=== PATIENT | female | born 1980 | race Caucasian/White ===

== ENCOUNTER 2017-06-30 21:45 | Emergency (ER) | payer SELFPAY ==
[2017-06-30 21:56] VITALS: BP 151/94
[2017-06-30] MEDS ORDERED: IBUPROFEN 600 MG TABLET PO ONE (21:58)
[2017-06-30] MEDS ORDERED: BUPIVACAINE HCL 50 ML VIAL IJ ONE (22:02)
[2017-06-30] MEDS ORDERED: PENICILLIN V POTASSIUM 250 MG TABLET PO ONE (22:05)
--- NOTE | 2017-06-30 22:05 | ERNOTE ---
ENT HPI Date of Service: 06/30/17 Presenting Symptoms: dental pain Time Seen by Provider: 06/30/17 21:55 - Immun/Allergies/Home Medications Immunizations: IMMUNIZATION HX Immunizations Up to Date Yes History of Influenza Vaccine No Hx Pneumococcal Vaccination No Allergies/Adverse Reactions: Allergies Allergy/AdvReac Type Severity Reaction Status Date / Time No Known Allergies Allergy Verified 06/30/17 21:56 Home Medications: HOME MEDICATIONS HYDROcodone/ACETAMINOPHEN [[place] 5-325] 1 each PO Q4H PRN #10 tablet 06/30/17 [ Last Taken Unknown] Penicillin V Potassium [Pen-Vee K] 500 mg PO Q6H #40 tab 06/30/17 [Last Taken Unknown] - History of Present Illness Narrative: This is a 36-year-old female who comes to the emergency department with 3 days of left lower tooth pain. The patient says that she saw a dentist 6 months ago and was told that she had lost part of her tooth. She was told she would likely need to have it extracted. She has not done so. 3 days ago it started bothering her more. She does not have any pain radiating to the ear. She does not have any difficulty swallowing. No fever. No other complaints Review of Systems - Review of Systems Constitutional: Present: no symptoms reported EYE: Present: no symptoms reported ENT: Present: other Respiratory: Present: no symptoms reported Cardiology: Present: no symptoms reported - dental pain Gastrointestinal/Abdominal: Present: no symptoms reported Genitourinary: Present: no symptoms reported Musculoskeletal: Present: no symptoms reported Skin: Present: no symptoms reported Neurological: Present: no symptoms reported Endocrine: Present: no symptoms reported Hematologic/Lymphatic: Present: no symptoms reported Psych: Present: no symptoms reported - Patient's Past Medical History Patient History - Medical: No pertinent hx Patient History - Cardiac/Respiratory: No pertinent hx Patient History - Cancer: No Hx of Cancer Patient History - Surgical Procedures: No surgical history Patient History - Other: None LMP (females 10-50): unknown - Social History Living Situations: alone Abuse History: No History of abuse Psych History: Hx of Anxiety Smoking Status: Current every day smoker Have you smoked in the past 12 months: Yes Do you dip or chew tobacco: No Alcohol Use: occasionally Drug Use: none - Immunizations Immunizations Up to Date: Yes Hx Pneumococcal Vaccination: No History of Influenza Vaccine: No Physical Exam - Physical Exam General Appearance: Present: wd/wn, alert, no apparent distress Head Exam: Present: normal inspection, no evidence of injury Eye Exam: Normal inspection: bilateral, PERRL: bilateral, EOMI: bilateral Ears, Nose, Throat: Present: other - patient has cavities in the left lower molars. Second molar is nearly completely decayed. Significant retention of food particles. Percussion does not cause significant pain. There is a distal lingual carry on the first molar left lower. This is about 10% of the tooth area. Food material is also noted in this. This tooth is also not tender to percussion. Neck: Present: normal inspection, nontender Respiratory: Present: no respiratory distress, normal breath sounds, no accessory muscle use, lungs clear Cardiovascular/Chest: Present: regular rate, rhythm, no murmur, normal peripheral pulses Gastrointestinal/Abdominal: Present: normal bowel sounds, nontender, nondistended, soft, no organomegaly Back Exam: Present: normal inspection, no CVA tenderness, no vertebral tenderness Extremity Exam: Present: normal inspection, non-tender, no edema Neurological Exam: Present: alert, oriented, normal mood/affect, no motor/ sensory deficits Skin Exam: Present: normal color, warm/dry Lymphatic Exam: Present: no adenopathy ED Progress - Vital Signs Patient's Vital Signs:: I have reviewed the patient's vital signs. Vital Signs: Vital Signs 06/30/17 21:50 Temperature 36.1 C L Pulse Rate 113 H Respiratory 14 Rate Blood Pressure 151/94 O2 Sat by Pulse 99 Oximetry - Progress/Reassessment Chief Complaint: Dental Problem Procedures Comments: 10 mL of 1:1 solution of 0.5% Marcaine and 1% lidocaine with epinephrine was prepared. 8 mL was injected as a left inferior alveolar nerve block. Patient tolerated procedure well. Patient had nearly instantaneous relief of her pain. Departure Clinical Impression: Dental caries - Departure Disposition: Home self-care Condition: Stable Instructions: Dental Caries Additional Instructions: As discussed, U have several large cavities on the teeth in this area. You're going to continue to have problems until you have these teeth treated by a dentist. I suspect that the last tooth, the second molar, is going to have to be removed. If you get the next tooth in front of it, the first molar, taken care of soon, you may be able to save this tooth with only cavities. Take the prescribed penicillin for all 10 days. Continue taking ibuprofen, take 3 of the 200 mg tablets, this is 600 mg of Motrin or Advil, every 6 hours to help with pain. He can take the prescribed hydrocodone for severe pain. No driving or operating machinery while taking this. Due to her best to make this last as most emergency departments will not give further pain medicine. If you develop new concerning symptoms return to the ER Prescriptions: HYDROcodone/ACETAMINOPHEN [[place] 5-325] 1 each PO Q4H PRN #10 tablet PRN Reason: Pain Penicillin V Potassium [Pen-Vee K] 500 mg PO Q6H #40 tab
[2017-06-30] MEDS ORDERED: PENICILLIN V POTASSIUM 250 MG TABLET ONE (22:19)
[2017-06-30] MEDS ORDERED: IBUPROFEN 600 MG TABLET ONE (22:19)
== END 2017-06-30 22:23 | disposition home or self-care (01) ==
LOC: ER 21:45
PROC: 3E0T3BZ Introduction of Anesthetic Agent into Peripheral Nerves and Plexi, Percutaneous Approach (ICD-10-PCS; principal; 2017-06-30)
DX: K02.9 Dental caries, unspecified (principal); F17.200 Nicotine dependence, unspecified, uncomplicated